=== PATIENT | male | born 1990 | race Caucasian/White ===

== ENCOUNTER 2016-07-01 12:41 | Emergency (ER) | payer OTHER ==
[2016-07-01 13:13] VITALS: BP 153/95; PULSE 104; TEMP 97.9
[2016-07-01 13:18] VITALS: RESP 16
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
== END 2016-07-01 13:24 | disposition home or self-care (01) ==
LOC: EC 12:41
DX: T20.26XA Burn of second degree of forehead and cheek, initial encounter (principal); X04.XXXA Exposure to ignition of highly flammable material, initial encounter; Y92.007 Garden or yard of unspecified non-institutional (private) residence as the place of occurrence of the external cause
CPT/HCPCS: 99283